=== PATIENT | female | born 1995 | race Caucasian/White ===

== ENCOUNTER → 2019-01-28 | Outpatient (CLI) | payer BC ==
[2016-06-06 14:06] VITALS: BMI 22.5
[~2019-01-28] MED LIST: ADDE30XRPT PO; CETI10CA8 PO; ESOM40CA42 PO; FLU220R INH; FLUT16SP19 NS; HYDR474S3 PO; LANS30TA12 PO; LORA10CA3 PO; MONT10TA PO; ONDA4TAB PO; PRED5SOL17 PO; RANI-325 PO; RANI-366 PO; [UNRECOGNIZED DRUG - REMARK] PO
== END ==
LOC: LAB 11:11
PROVIDERS: ATTEND Otolaryngology
DX: K20.0 Eosinophilic esophagitis (principal)
CPT/HCPCS: 36415; 86003